=== PATIENT | male | born 1955 | race African-American/Black ===

== ENCOUNTER 2016-10-15 09:43 | Emergency (ER) | payer BC, OTHER ==
[~2016-10-15] VITALS: Ht 172.7 cm; Wt 83.0 kg
[2016-10-15 10:28] LABS: BASOPHILS % 0.5 % (0.0-2.0); EOSINOPHILS % 0.4 % (0.0-5.0); HEMATOCRIT. 40.7 % (42.0-52.0); HEMOGLOBIN. 13.7 g/dL (14.0-18.0); LYMPHOCYTES % 46.8 % (20.0-50.0); MEAN CORPUSCULAR HEMOGLOBIN 29.9 pg (28.0-32.0); MEAN CORPUSCULAR VOLUME 88.6 fL (80.0-94.0); MEAN PLATELET VOLUME 8.4 fl (7.4-10.4); MONOCYTES % 7.1 % (2.0-8.0); NEUTROPHILS % 45.2 % (40.0-76.0); PLATELET 230 x1000/uL (130-400); RED CELL DISTRIBUTION WIDTH 13.9 % (11.6-14.6)
[2016-10-15 10:39] LABS: CLARITY URINE CLEAR (CLEAR); COLOR URINE YELLOW (YELLOW); GLUCOSE URINE NEGATIVE (NEGATIVE); KETONES URINE NEGATIVE (NEGATIVE); LEUKOCYTE ESTERASE URINE NEGATIVE (NEGATIVE); NITRITE URINE NEGATIVE (NEGATIVE); OCCULT BLOOD URINE NEGATIVE (NEGATIVE); PH URINE 5.5 (4.5-8.0); PROTEIN URINE NEGATIVE (NEGATIVE); SPECIFIC GRAVITY URINE 1.016 (1.005-1.030); UROBILINOGEN URINE 0.2 E.U./dL (0.2-1.0)
[2016-10-15 10:44] LABS: CARBON DIOXIDE 31 mEq/L (21-32); CHLORIDE 104 mEq/L (98-107)
[2016-10-15 10:47] LABS: TROPONIN I 0.04 ng/mL (0.00-0.04)
[2016-10-15 10:52] LABS: PARTIAL THROMBOPLASTIN TIME 26.7 sec (24.0-34.0); PROTHROMBIN TIME 10.9 sec
[2016-10-15] MEDS ORDERED: AMLODIPINE 2.5MG TABLET PO ONE (12:45)
[2016-10-15 13:06] VITALS: BP 157/104
== END 2016-10-15 13:18 | disposition home or self-care (01) ==
LOC: ER 09:43
DX: R53.1 Weakness (principal); I10 Essential (primary) hypertension
CPT/HCPCS: 36415; 70450; 71010; 80053; 81003; 83690; 83735; 83880; 84443; 84484; 85025; 85610; 85730; 93005; 99285